=== PATIENT | male | born 1930 | race Hispanic/Latino ===

== ENCOUNTER 2018-09-11 10:11 | Emergency (ER) | payer MEDICARE, OTHER ==
[2018-09-11 10:19] VITALS: BMI 32.8
[2018-09-11 10:20] VITALS: TEMP 96.6
[2018-09-11] MEDS ORDERED: TDAP Vaccine 0.5 mL Syr IM ONE (10:50)
--- NOTE | 2018-09-11 10:57 | ED PDOC ---
Arrival/HPI - General Chief Complaint: Trauma Time Seen by Provider: 09/11/18 10:30 Historian: Patient, Spouse () - History of Present Illness Narrative History of Present Illness (Text): 09/11/18 10:52 A 87 year old male, whose past medical history includes hypertension and hyperlipidemia, presents to the emergency department s/p mechanical fall. Patient reports he was walking on the sidewalk when he tripped and fell on his face (forehead and nose), injuring on his right hand. Patient denies any headache or dizziness prior to fall and tetanus status is unknown. Patient denies any neck pain, right elbow pain, right shoulder pain, or any other complaints. PMD: Dr. Youngblood Time/Duration: Prior to Arrival Symptom Onset: Sudden Symptom Course: Unchanged Activities at Onset: Light Context: Walking, Street Past Medical History - Provider Review Nursing Documentation Reviewed: Yes - Cardiac Hx Hypertension: Yes - Genitourinary/Gynecological Hx Prostate Problems: Yes - Psychiatric Hx Substance Use: No - Surgical History Hx Cataract Extraction: Yes (ou) - Anesthesia Hx Anesthesia Reactions: No Hx Malignant Hyperthermia: No Family/Social History - Physician Review Nursing Documentation Reviewed: Yes Family/Social History: No Known Family HX Smoking Status: Never Smoked Hx Alcohol Use: Yes Frequency of alcohol use: Socially Hx Substance Use: No Allergies/Home Meds Allergies/Adverse Reactions: Allergies No Known Allergies Allergy (Verified 09/11/18 10:18) Home Medications: Home Meds Medication Instructions Recorded Confirmed Aspirin [Ecotrin] 81 mg PO DAILY 09/11/18 09/11/18 Atorvastatin [Lipitor] 40 mg PO DAILY 09/11/18 09/11/18 Metoprolol Succinate [Kapspargo 50 mg PO DAILY 09/11/18 09/11/18 Sprinkle] Ramipril [Altace] 10 mg PO DAILY 09/11/18 09/11/18 Tamsulosin [Flomax] 0.4 mg PO DAILY 09/11/18 09/11/18 Review of Systems - Physician Review All systems were reviewed & negative as marked: Yes - Review of Systems Musculoskeletal: absent: Neck Pain, Other (no right elbow or shoulder pain) Skin: Other (Abrasions to forehead, nose, and right hand) Physical Exam Vital Signs Reviewed: Yes Vital Signs Temp Pulse Resp BP Pulse Ox 09/11/18 10:22 96.6 F L 78 16 162/76 H 97 09/11/18 10:11 96.6 F L 78 18 162/76 H 99 Temperature: Afebrile Blood Pressure: Hypertensive Pulse: Regular Respiratory Rate: Normal Appearance: Positive for: Well-Appearing, Non-Toxic Mental Status: Positive for: Alert and Oriented X 3 - Systems Exam Head: Present: Atraumatic, Normocephalic, Abrasion, Other (right forehead hematoma, Full ROM ) Pupils: Present: PERRL Extroacular Muscles: Present: EOMI Conjunctiva: Present: Normal Nose (External): Present: Abrasion Nose (Internal): No: No Active Bleeding, Epistaxis Neck: Present: Normal Range of Motion. No: MIDLINE TENDERNESS, Paraspinal Tenderness, Lymphadenopathy, Bruit Respiratory/Chest: Present: Clear to Auscultation, Good Air Exchange. No: Respiratory Distress, Accessory Muscle Use Cardiovascular: Present: Regular Rate and Rhythm, Normal S1, S2. No: Murmurs Abdomen: No: Tenderness, Distention, Peritoneal Signs Back: Present: Normal Inspection Upper Extremity: Present: Normal Inspection, Normal ROM, NORMAL PULSES, Other (abrasion to right hand). No: Cyanosis, Edema Lower Extremity: Present: Normal Inspection. No: Edema Neurological: Present: GCS=15, CN II-XII Intact, Speech Normal, Motor Func Grossly Intact, Normal Sensory Function Skin: Present: Warm, Dry, Normal Color. No: Rashes Psychiatric: Present: Alert, Oriented x 3, Normal Insight, Normal Concentration Medical Decision Making ED Course and Treatment: 09/11/18 10:52 Impression: 87 year old male presenting to the emergency room s/p mechanical fall. Differential Diagnosis included but are not limited to: mechanical fall with head injury rule out fracture and bleed Plan: -- CT of Maxillofacial without contrast -- CT of Head without contrast -- Tylenol -- Boostrix vaccine -- Reassess and disposition Progress Notes: 09/12/18 13:11 Creator : Queenie Hernandez MD PROCEDURE: CT HEAD WITHOUT CONTRASTIMPRESSION: No acute intracranial hemorrhage. Mild chronic white matter ischemic changes with scattered chronic bilateral basal nuclei lacunar type infarcts as described. Moderate to fairly significant generalized volume loss. There is a large mid and right frontal/supraorbital scalp contusion extending inferiorly over the glabella region and bridge of nose more so on the right side Inspector [employer] : Queenie Hernandez MD PROCEDURE: CT MAXILLOFACIAL BONES WITHOUT CONTRAST IMPRESSION: Unremarkable non contrast enhanced CT of the maxillofacial bones. Patient's CT results reviewed with patient and his . Gel foam was applied to facial forehead abrasion to control bleeding. Bleeding controlled. No indication for laceration repair. Tetanus given. Patient denies any lightheadedness or dizziness when standing and feels ambulation is normal. He denies any new systems since arrival. He will be discharged with close follow up with primary care doctor. He was advised to return to the ED if symptoms worsen or any other concern. - RAD Interpretation Radiology Orders: 09/11/18 10:50 HEAD W/O CONTRAST [CT] Stat 09/11/18 10:51 MAXILLOFACIAL W/O CONTRAST [CT] Stat Disposition/Present on Arrival - Present on Arrival Any Indicators Present on Arrival: No History of DVT/PE: No History of Uncontrolled Diabetes: No Urinary Catheter: No History of Decub. Ulcer: No History Surgical Site Infection Following: None - Disposition Have Diagnosis and Disposition been Completed?: Yes Diagnosis: Head injury, Contusion Disposition: HOME/ ROUTINE Disposition Time: 13:11 Patient Plan: Discharge Condition: IMPROVED Discharge Instructions (ExitCare): Concussion in Adults Additional Instructions: QUEENIE OCAMPO, thank you for letting us take care of you today. Your provider was Carlos Joe DO and you were treated for Mechanical Fall with Head injury. The emergency medical care you received today was directed at your acute symptoms. If you were prescribed any medication, please fill it and take as directed. It may take several days for your symptoms to resolve. Return to the Emergency Department if your symptoms worsen, do not improve, or if you have any other problems. Please contact your doctor or call one of the physicians/clinics you have been referred to that are listed on the Patient Visit Information form that is included in your discharge packet. Bring any paperwork you were given at discharge with you along with any medications you are taking to your follow up visit. Our treatment cannot replace ongoing medical care by a primary care provider outside of the emergency department. Thank you for allowing the [facility] team to be part of your care today. If you had an X-Ray or CT scan: A Radiologist will review the ED reading if any change in treatment is needed we will contact you. If you had a blood, urine, or wound culture: It will take several days for the results, if any change in treatment is needed we will contact you. If you had an STI test: It will take 48 hours for the results. Please call after 1 week if you have not heard back. Prescriptions: Acetaminophen [Tylenol 325mg tab] 650 mg PO Q4 #60 tab Referrals: Henry Youngblood MD [Primary Care Provider] - Follow up with primary Forms: [employer] (Maltese)
--- NOTE | 2018-09-11 12:50 | CT ---
Date of service: 09/11/2018 PROCEDURE: CT HEAD WITHOUT CONTRAST. HISTORY: r/o cva COMPARISON: Comparison made with concurrent CT scan maxillofacial skeleton. TECHNIQUE: Axial computed tomography images were obtained through the head/brain without intravenous contrast. Radiation dose: Total exam DLP = 857.7 mGy-cm. This CT exam was performed using one or more of the following dose reduction techniques: Automated exposure control, adjustment of the mA and/or kV according to patient size, and/or use of iterative reconstruction technique. FINDINGS: HEMORRHAGE: No intracranial hemorrhage. BRAIN: Mild diffuse and confluent chronic periventricular white matter ischemic changes seen extending peripherally into the deep white matter both cerebral hemispheres. There appear to be scattered chronic bilateral basal nuclei lacunar type infarcts note that some of which are difficult to distinguish from dilated perivascular spaces along the inferior basal nuclei. Note that the possibility of a small hyperacute infarct cannot be excluded on this exam. Moderate to fairly significant generalized volume loss. No obvious parenchymal nor extra-axial masses or collections seen on this noncontrast exam. Vascular calcifications both carotid siphons and left vertebral artery. VENTRICLES: No obstructive hydrocephalus. CALVARIUM: There are no acute calvarial fractures. Large right-mid frontal and supraorbital scalp contusion extending inferiorly over the glabella and bridge of nose more so on the right than left. PARANASAL SINUSES: Unremarkable as visualized. No significant inflammatory changes. There is mild mucosal thickening noted in the maxillary and ethmoid air complexes MASTOID AIR CELLS: Unremarkable as visualized. No inflammatory changes. OTHER FINDINGS: Changes of bilateral cataract surgery. Senile calcifications seen at the origins of the lateral recti musculature bilaterally. IMPRESSION: No acute intracranial hemorrhage. Mild chronic white matter ischemic changes with scattered chronic bilateral basal nuclei lacunar type infarcts as described. Moderate to fairly significant generalized volume loss. There is a large mid and right frontal/supraorbital scalp contusion extending inferiorly over the glabella region and bridge of nose more so on the right side
--- NOTE | 2018-09-11 12:54 | CT ---
Date of service: 09/11/2018 PROCEDURE: CT MAXILLOFACIAL BONES WITHOUT CONTRAST HISTORY: Fall with facial injury; rule out fracture COMPARISON: Correlation made with concurrent CT scan brain TECHNIQUE: Contiguous axial CT images of the maxillofacial bones were obtained. Coronal and sagittal reformats were generated. Radiation dose: Total exam DLP = 826.56 mGy-cm. This CT exam was performed using one or more of the following dose reduction techniques: Automated exposure control, adjustment of the mA and/or kV according to patient size, and/or use of iterative reconstruction technique. FINDINGS: NASAL BONES: Unremarkable. ORBITS: There is a large right -mid frontal and supraorbital scalp contusion which extends inferiorly over the glabella bridge of nose region right more so than left Changes of bilateral cataract surgery. There are seen are calcifications seen along the insertion sites of the lateral recti musculature bilaterally PARANASAL SINUSES/ MASTOIDS: Mild mucosal thickening seen within the maxillary antra as well as several ethmoid air cells. MAXILLA: Maxilla including the nasal spine appear intact. MANDIBLE/ TEMPOROMANDIBULAR JOINTS: Unremarkable. SKULL BASE: Unremarkable. TEMPORAL BONES: Middle ears and mastoid grossly unremarkable. OTHER FINDINGS: None IMPRESSION: Unremarkable non contrast enhanced CT of the maxillofacial bones.
[2018-09-11] MEDS ORDERED: Absorbable Gelatin Sponge Size 100 MM ONE (12:59)
[2018-09-11] MEDS ORDERED: Absorbable Gelatin Sponge Size 12-7 ONE (13:02)
[2018-09-11 13:11] VITALS: BP 169/71; PULSE 65; O2SAT 95
[2018-09-11 13:12] VITALS: RESP 16
== END 2018-09-11 13:12 | disposition home or self-care (01) ==
LOC: ED 10:11
DX: S00.83XA Contusion of other part of head, initial encounter (principal); W01.0XXA Fall on same level from slipping, tripping and stumbling without subsequent striking against object, initial encounter; Y92.480 Sidewalk as the place of occurrence of the external cause

== ENCOUNTER 2018-09-12 13:51 | Emergency (ER) | payer MEDICARE ==
[2018-09-12 13:51] VITALS: BMI 32.8
[2018-09-12 14:49] VITALS: BP 151/66; PULSE 66; RESP 18; TEMP 98; O2SAT 97
--- NOTE | 2018-09-12 15:32 | ED PDOC ---
Arrival/HPI - General Chief Complaint: Abnormal Skin Integrity Time Seen by Provider: 09/12/18 14:51 Historian: Patient - History of Present Illness Narrative History of Present Illness (Text): 09/12/18 15:32 87yo male with with pmhx of hypertension who present to ED for evaluation of the discoloration under his eyes. Patient states he was seen here yesterday s/p facial trauma and facial CT was negative. States he came to ED today because he noticed the discoloration under his eyes, which he didn't have yesterday. He denies visual changes, eye pain, discharge, any other complaint. Past Medical History - Provider Review Nursing Documentation Reviewed: Yes - Cardiac Hx Hypertension: Yes - Genitourinary/Gynecological Hx Prostate Problems: Yes - Psychiatric Hx Substance Use: No - Surgical History Hx Cataract Extraction: Yes (ou) - Anesthesia Hx Anesthesia Reactions: No Hx Malignant Hyperthermia: No Family/Social History - Physician Review Nursing Documentation Reviewed: Yes Family/Social History: Unknown Family HX Smoking Status: Never Smoked Hx Alcohol Use: Yes Hx Substance Use: No Allergies/Home Meds Allergies/Adverse Reactions: Allergies No Known Allergies Allergy (Verified 09/12/18 14:49) Home Medications: Home Meds Medication Instructions Recorded Confirmed RX: Aspirin [Ecotrin] 81 mg PO DAILY 09/11/18 09/12/18 RX: Atorvastatin [Lipitor] 40 mg PO DAILY 09/11/18 09/12/18 RX: Metoprolol Succinate 50 mg PO DAILY 09/11/18 09/12/18 [Kapspargo Sprinkle] RX: Ramipril [Altace] 10 mg PO DAILY 09/11/18 09/12/18 Tamsulosin [Flomax] 0.4 mg PO DAILY 09/11/18 09/12/18 Review of Systems - Physician Review All systems were reviewed & negative as marked: Yes - Review of Systems Constitutional: Normal Eyes: Normal, Other (B/l infraorbital discoloration) ENT: Normal Respiratory: Normal Cardiovascular: Normal Gastrointestinal: Normal Genitourinary Male: Normal Musculoskeletal: Normal Skin: Normal Neurological: Normal Endocrine: Normal Hemo/Lymphatic: Normal Psychiatric: Normal Physical Exam Vital Signs Reviewed: Yes Vital Signs Temp Pulse Resp BP Pulse Ox 09/12/18 14:46 98 F 66 18 151/66 H 97 Temperature: Afebrile Blood Pressure: Normal Pulse: Regular Respiratory Rate: Normal Appearance: Positive for: Well-Appearing, Non-Toxic, Comfortable Pain Distress: None Mental Status: Positive for: Alert and Oriented X 3 - Systems Exam Head: Present: Atraumatic, Normocephalic Pupils: Present: PERRL Extroacular Muscles: Present: EOMI, Other (Right infraorbital mild swelling with overlaying ecchymosis noted. Mild ecchymosis noted on left infraorbital area.) Conjunctiva: Present: Normal Mouth: Present: Moist Mucous Membranes Neck: Present: Normal Range of Motion Respiratory/Chest: Present: Clear to Auscultation, Good Air Exchange. No: Respiratory Distress, Accessory Muscle Use Cardiovascular: Present: Regular Rate and Rhythm, Normal S1, S2. No: Murmurs Abdomen: No: Tenderness, Distention, Peritoneal Signs Back: Present: Normal Inspection Upper Extremity: Present: Normal Inspection. No: Cyanosis, Edema Lower Extremity: Present: Normal Inspection. No: Edema Neurological: Present: GCS=15, CN II-XII Intact, Speech Normal Skin: Present: Warm, Dry, Normal Color. No: Rashes Psychiatric: Present: Alert, Oriented x 3, Normal Insight, Normal Concentration Medical Decision Making ED Course and Treatment: 09/13/18 18:11 87yo male who present for evaluation of the discoloration on his infra orbital area b/l. Pt's chart from previous visit was reviewed and Maxillofacial CT was negative. He denies any visual changes in ED. He had ecchymosis and mild right infraorbital swelling he was assured. Advised that ecchymosis will clear in a week to 2weeks time. Advised to f/u with his PMD and to return to ED for any new symptoms. Disposition/Present on Arrival - Present on Arrival Any Indicators Present on Arrival: No History of DVT/PE: No History of Uncontrolled Diabetes: No Urinary Catheter: No History of Decub. Ulcer: No History Surgical Site Infection Following: None - Disposition Have Diagnosis and Disposition been Completed?: Yes Diagnosis: Facial contusion, Ecchymosis Disposition: HOME/ ROUTINE Disposition Time: 15:40 Patient Plan: Discharge Condition: STABLE Discharge Instructions (ExitCare): [place] Additional Instructions: Follow up with your Doctor Return to ED for any new or worsening symptoms Referrals: Traci,Alba, MD [Medical Doctor] - Follow up with primary Forms: [employer] (Arabic)
== END 2018-09-12 15:41 | disposition home or self-care (01) ==
LOC: ED 13:51
DX: S00.83XD Contusion of other part of head, subsequent encounter (principal); W01.0XXD Fall on same level from slipping, tripping and stumbling without subsequent striking against object, subsequent encounter